=== PATIENT | female | born 2000 | race Two or more races ===

== ENCOUNTER 2023-11-16 14:55 | Outpatient (REF) | payer OTHER, SELFPAY ==
--- NOTE | ~2023-11-16 | US_ITS ---
EXAMINATION: US RETROPERITONEAL LIMITED (RENAL ONLY) CLINICAL INFORMATION: Left renal pain. History of left renal cyst. COMPARISON: None available. TECHNIQUE: Real-time imaging of the kidneys. FINDINGS: RIGHT KIDNEY: 9.2 x 4.2 x 5.0 cm (SAG x AP x TRV). The kidney is normal in size, contour, and echogenicity. Renal cortical thickness is normal. No calculi or focal parenchymal lesions. No hydronephrosis. LEFT KIDNEY: 9.7 x 5.6 x 5.2 cm (SAG x AP x TRV). The kidney is normal in size, contour, and echogenicity. Renal cortical thickness is normal. No renal calculi or hydronephrosis. Hypoechoic cystic structure is seen in left renal sinus measuring 1.1 x 1.4 x 1.3 cm in size. US/US renal BI IMPRESSION: 1. Normal sonographic appearance of right kidney. 2. Hypoechoic cystic structure in the left renal sinus could be compatible with mild left renal pelviectasis or parapelvic simple renal cyst, for which no follow up imaging is recommended.
--- NOTE | ~2023-11-16 | US_ITS ---
EXAMINATION: US PELVIS CLINICAL INFORMATION: Intermittent left lower quadrant pain; the last menstrual period was on 10/30/2023. COMPARISON: None available. TECHNIQUE: Ultrasound of the pelvis is performed using both transabdominal and transvaginal transducers along with Doppler. Transvaginal imaging is performed due to inadequate visualization transabdominally. FINDINGS: Uterus: The uterus is anteverted and measures 7.5 x 2.9 x 4.8 cm. The double wall endometrial thickness is 5 mm. The uterus is smooth in contour and has normal myometrial echogenicity. No visible fibroid. Adnexa: Both ovaries are visualized. There is normal color flow to the adnexa. There is no ovarian torsion. There is trace free fluid within the cul-de-sac. Right ovary measures 3.4 x 2.3 x 2.3 cm, volume 9.7 mL. The right ovary contains a 1.6 cm benign, simple cyst, for which no imaging follow-up is recommended. Left ovary measures 2.9 x 1.8 x 1.6 cm, volume 7.2 mL. US/US pelvic and transvaginal IMPRESSION: There is trace free fluid within the cul-de-sac. The examination is otherwise unremarkable.
== END 2023-11-16 14:56 | disposition home or self-care (01) ==
LOC: HO.UMASIMG 14:55
PROVIDERS: PCP Family Medicine; Visit Provider Family Medicine
DX: R10.9 Unspecified abdominal pain (principal)
CPT/HCPCS: 76775; 76830; 76856